=== PATIENT | female | born 1965 | race Caucasian/White ===

== ENCOUNTER 2019-05-16 00:47 | Outpatient (CLI) | payer MEDICAID, SELFPAY ==
--- NOTE | 2019-05-16 09:01 | DI.RAD_ITS ---
SYMPTOMS/DIAGNOSIS: RT KNEE PAIN, HX OF DISLOCATION AND CAST RIGHT KNEE: Three views. No priors. There is marked narrowing of the medial femoral tibial joint space and mild narrowing of the patellofemoral joint. There are large osteophytes arising from all three joint compartments particularly the patellofemoral joint and the medial femoral tibial joint space. No acute fracture or dislocation is seen. There is a small suprapatellar joint effusion. The soft tissues are otherwise unremarkable. IMPRESSION: Severe osteoarthritis of the right knee.
[2019-05-16 10:07] LABS: Abs Immature Grans 0.01 k/cumm (0.0-0.09); Absolute Basophil Count 0.01 k/cumm (0.0-0.2); Absolute Eosinophil Count 0.07 k/cumm (0.0-0.7); Absolute Lymphocyte Count 1.31 k/cumm (1.2-3.4); Absolute Monocyte Count 0.53 k/cumm (0.11-0.7); Basophils % 0.2; Eosinophils % 1.5; HCT 45.5 % (36.0-46.0); HGB 15.1 g/dL (12.0-15.5); Immature Grans % 0.2; Lymphocytes % 28.3; Mean Corp. HGB Concentration 33.2 g/dL (32.0-36.0); Mean Corpuscular Hemoglobin 28.7 pg (27.0-33.0); Mean Corpuscular Volume 86.5 fL (80-95); Monocytes % 11.4; Neutrophils % 58.4; Platelet Count 196 x1000/uL (130-400); RBC 5.26 m/cumm (4.00-5.20); RBC Distribution Width 13.9 % (11.7-14.6); White Blood Cell Count 4.63 k/cumm (4.4-10.8)
[2019-05-16 10:45] LABS: Hemoglobin A1C 5.6 % (4.5-6.2)
[2019-05-16 12:09] LABS: ALT 31 U/L (12-78); AST 16 U/L (15-37); Albumin 4.1 g/dL (3.4-5.0); Alkaline Phosphatase 66 U/L (46-116); Anion Gap 11.4 mmol/L (3-11); BUN 16 mg/dL (7-18); Bilirubin, Total 0.4 mg/dL (0.2-1.0); CO2 26.6 mmol/L (21.0-32.0); CREATININE 0.92 mg/dL (0.55-1.02); Calcium 9.2 mg/dL (8.5-10.1); Calculated LDL 168 mg/dL; Chloride 106 mmol/L (98-107); Cholesterol 264 mg/dL (50-200); Ferritin 57 ng/mL (8-388); Glucose 102 mg/dL (70-100); HDL Cholesterol 67 mg/dL (40-60); Potassium 4.5 mmol/L (3.5-5.1); Sodium 144 mmol/L (136-145); TSH 17.62 uIU/mL (0.358-3.74); Triglyceride 148 mg/dL (30-150)
[2019-05-16 12:30] LABS: FREE T4 0.99 ng/dL (0.76-1.46)
[2019-05-16 16:35] LABS: T3,Free 3.4 pg/ml (2.8-5.3)
[2019-05-17 10:31] LABS: Thyroglobulin Antibody 56 U/mL (<61); Thyroperoxidase Antibody >1300 U/mL (<61)
== END 2019-05-16 01:07 ==
PROVIDERS: PCP Naturopath; Visit Provider Naturopath
DX: M25.561 Pain in right knee (principal); M25.461 Effusion, right knee; M17.11 Unilateral primary osteoarthritis, right knee; E55.9 Vitamin D deficiency, unspecified; N95.1 Menopausal and female climacteric states; E03.9 Hypothyroidism, unspecified; Z13.220 Encounter for screening for lipoid disorders; E01.8 Other iodine-deficiency related thyroid disorders and allied conditions; D50.9 Iron deficiency anemia, unspecified; E66.9 Obesity, unspecified
CPT/HCPCS: 36415; 73562; 80053; 80061; 83721; 82728; 83036; 84439; 84443; 84481; 85025; 86376; 86800

== ENCOUNTER 2019-05-22 10:32 | Outpatient (REF) | payer MEDICAID, SELFPAY ==
[2019-05-25 22:09] LABS: Iodine, 24 hr Urine 1379 mcg/24 h (75 - 851); Urine Volume 1950 mL
== END 2019-05-22 10:52 ==
LOC: LBN 10:32
PROVIDERS: PCP Naturopath; Visit Provider Naturopath
DX: E55.9 Vitamin D deficiency, unspecified (principal); E03.9 Hypothyroidism, unspecified; N95.1 Menopausal and female climacteric states; E01.8 Other iodine-deficiency related thyroid disorders and allied conditions; D50.9 Iron deficiency anemia, unspecified; E66.9 Obesity, unspecified; Z13.220 Encounter for screening for lipoid disorders; Z00.00 Encounter for general adult medical examination without abnormal findings
CPT/HCPCS: 81050; 83018

== ENCOUNTER 2019-10-10 09:37 | Outpatient (CLI) | payer MEDICAID, SELFPAY ==
[2019-10-10 11:20] LABS: TSH 0.93 uIU/mL (0.36-3.74)
== END 2019-10-10 09:57 ==
PROVIDERS: PCP Naturopath; Visit Provider Naturopath
DX: E07.9 Disorder of thyroid, unspecified (principal); E06.3 Autoimmune thyroiditis
CPT/HCPCS: 36415; 84439; 84443

== ENCOUNTER 2020-06-11 02:51 | Outpatient (CLI) | payer MEDICAID, SELFPAY ==
[2020-06-11 13:05] LABS: Abs Immature Grans 0.03 10^3/uL (0.0-0.06); Absolute Basophil Count 0.02 10^3/uL (0.0-0.2); Absolute Eosinophil Count 0.03 10^3/uL (0.0-0.7); Absolute Lymphocyte Count 1.28 10^3/uL (1.2-3.4); Absolute Monocyte Count 0.57 10^3/uL (0.1-0.8); Absolute Neutrophil Count 2.83 10^3/uL (1.2-6.7); Basophils % 0.4; Eosinophils % 0.6; HCT 47.6 % (36.0-46.0); HGB 15.2 g/dL (11.2-15.7); Immature Grans % 0.6; Lymphocytes % 26.9; MCH 27.5 pg (27.0-33.0); MCHC 31.9 % (32.0-36.0); MCV 86.2 fL (80-95); MPV 10.9 fL (8.0-11.0); Neutrophils % 59.5; Nucleated RBC 0 %; Platelet Count 221 10^3/uL (130-400); RBC 5.52 10^6/uL (3.93-5.22); RDW 13.3 % (11.7-14.6); RDW-SD 42.4 fL; WBC 4.76 10^3/uL (4.4-10.8)
[2020-06-11 13:34] LABS: Bilirubin Negative (Negative); Blood Negative (Negative); Clarity Clear (Clear); Glucose Negative (Negative); Ketones Negative (Negative); Leukocyte Esterase Negative (Negative); Nitrite Negative (Negative); Urobilinogen 0.2 EU/dL (Up TO 0.2); pH 6.5 (5-8)
[2020-06-11 13:43] LABS: Hemoglobin A1C 5.6 % (3.8-5.6)
[2020-06-11 14:34] LABS: FREE T4 1.28 ng/dL (0.76-1.46); TSH 0.16 uIU/mL (0.36-3.74)
[2020-06-11 21:14] LABS: T3,Free 3.9 pg/mL (2.8-5.3)
[2020-06-11 22:09] LABS: Thyroperoxidase Antibody >1300 U/mL (<=60)
[2020-06-14 09:12] LABS: 25-Hydroxy D Total 42 ng/mL; 25-Hydroxy D2 12 ng/mL; 25-Hydroxy D3 30 ng/mL
== END 2020-06-11 03:11 ==
PROVIDERS: PCP Naturopath; Visit Provider Naturopath
DX: E06.3 Autoimmune thyroiditis (principal); E66.3 Overweight; D50.9 Iron deficiency anemia, unspecified; R53.83 Other fatigue; E55.9 Vitamin D deficiency, unspecified; E66.9 Obesity, unspecified
CPT/HCPCS: 36415; 82306; 81003; 83036; 84439; 84443; 84481; 85025; 86376

== ENCOUNTER 2020-09-20 01:01 | Outpatient (CLI) | payer MEDICAID, SELFPAY ==
--- NOTE | 2020-09-20 | DI.MAMMO_ITS ---
EXAM: MAMMO SCREENING CLINICAL HISTORY: SCREENING,Z12.31. TECHNIQUE: Bilateral full field digital CC and MLO mammographic images were obtained with 3D tomosyn thesis and utilizing computer aided detection (CAD). COMPARISON: None available FINDINGS: In the medial aspect of the left breast on 3D cc imaging there are 2 small well-defined noncalcified nodules which are located medial of center lower inner quadrant, approximately eight centimetres in f rom the nipple. There are no malignant-appearing microcalcification groups in this region nor elsewh ere in the breast. No significant focal findings in the opposite-right breast. There is no new architectural distortio n nor skin thickening-retraction. IMPRESSION: No radiographic evidence of malignancy in the right breast Two small noncalcified nodules located medially in the left breast, as described above. Breast ultra sound recommended BI-RADS Category 0 - Assessment Incomplete: Need additional imaging evaluation Breast Density - Category B - Scattered areas of fibroglandular density Breast density Category C or D implies that the patient has dense breast tissue. Dense breast tissue can make it harder to find cancer on a mammogram. Dense breast tissue is also associated with an incr eased risk of breast cancer. This information about the result of the mammogram report was provided to the patient to raise their awareness. Use this report when you speak with the patient about their risks for breast cancer, which includes their family history. At that time, you may recommend additional screening tests (Ultrasoun d or MRI) as these tests may add significant information. A negative radiographic report should not delay biopsy if a dominant or clinically suspicious mass is present. Up to ten percent of cancers are not identified on mammography. A negative report may reinforce clinical impression. Adenosis and dense breasts may obscure an underlying neoplasm. False positive reports average 6 to 10%. Patient will receive a letter notifying them of these results.
== END 2020-09-20 01:21 ==
PROVIDERS: PCP Naturopath; Visit Provider Naturopath
DX: Z12.31 Encounter for screening mammogram for malignant neoplasm of breast (principal); N63.24 Unspecified lump in the left breast, lower inner quadrant
CPT/HCPCS: 77063; 77067

== ENCOUNTER 2020-10-12 01:38 | Outpatient (CLI) | payer MEDICAID, SELFPAY ==
--- NOTE | 2020-10-12 | DI.US_ITS ---
EXAM: US BREAST LT LIMITED CLINICAL HISTORY: F/U MAMMO, 2 SMALL NODULES LOWER INNER QUADRANT TECHNIQUE: Ultrasound right breast performed using standard protocol. COMPARISON: MG MG MAMMO SCREENING from 09/20/2020 FINDINGS: Ultrasound was performed the medial left breast for small areas of nodularity. Minimally dilated stephanie ts are seen in the subareolar region. No solid or cystic masses, hypoechoic foci, areas of abnormal shadowing, or areas of skin thickening. Findings on mammogram are consistent with normal intra mammar y lymph nodes. IMPRESSION: No sonographically suspicious finding. Yearly screening mammography is recommended. BI-RADS Category 2 - Benign Findings DATA REPOSITORY:
== END 2020-10-12 01:58 ==
PROVIDERS: PCP Naturopath; Visit Provider Naturopath
DX: R92.8 Other abnormal and inconclusive findings on diagnostic imaging of breast (principal)
CPT/HCPCS: 76642

== ENCOUNTER 2021-01-25 02:39 | Outpatient (CLI) | payer MEDICAID, SELFPAY ==
[2021-01-25 09:31] LABS: Abs Immature Grans 0.01 10^3/uL (0.0-0.06); Absolute Basophil Count 0.02 10^3/uL (0.0-0.2); Absolute Eosinophil Count 0.07 10^3/uL (0.0-0.7); Absolute Lymphocyte Count 1.25 10^3/uL (1.2-3.4); Absolute Monocyte Count 0.44 10^3/uL (0.1-0.8); Absolute Neutrophil Count 1.85 10^3/uL (1.2-6.7); Basophils % 0.5; Eosinophils % 1.9; HGB 15.4 g/dL (11.2-15.7); Immature Grans % 0.3; Lymphocytes % 34.3; MCH 27.7 pg (27.0-33.0); MCHC 32.1 % (32.0-36.0); MCV 86.5 fL (80-95); MPV 10.4 fL (8.0-11.0); Monocytes % 12.1; Neutrophils % 50.9; Nucleated RBC 0 %; Platelet Count 193 10^3/uL (130-400); RBC 5.55 10^6/uL (3.93-5.22); RDW 13.7 % (11.7-14.6); RDW-SD 43.7 fL; WBC 3.64 10^3/uL (4.4-10.8)
[2021-01-25 09:44] LABS: Hemoglobin A1C 5.7 % (<5.7)
[2021-01-25 10:35] LABS: ALT 50 U/L (14-59); AST 37 U/L (15-37); Albumin 4.1 g/dL (3.4-5.0); Alkaline Phosphatase 72 U/L (46-116); Anion Gap 7.1 mmol/L (3-11); BUN 21 mg/dL (7-18); Bilirubin, Total 0.5 mg/dL (0.2-1.0); CO2 27.9 mmol/L (21.0-32.0); CREATININE 0.9 mg/dL (0.55-1.02); Chloride 105 mmol/L (98-107); Ferritin 97 ng/mL (8-252); Glucose 102 mg/dL (74-106); Potassium 3.9 mmol/L (3.5-5.1); Sodium 140 mmol/L (136-145); TSH 4.85 uIU/mL (0.36-3.74); Total Protein 7.5 g/dL (6.4-8.2)
[2021-01-25 10:51] LABS: FREE T4 0.67 ng/dL (0.76-1.46)
[2021-01-25 17:01] LABS: T3,Free 3.5 pg/mL (2.8-5.3)
[2021-01-25 17:37] LABS: Thyroperoxidase Antibody >1300 U/mL (<=60)
[2021-01-29 12:15] LABS: 25-Hydroxy D Total 40 ng/mL; 25-Hydroxy D2 7.3 ng/mL; 25-Hydroxy D3 33 ng/mL
== END 2021-01-25 02:40 | disposition home or self-care (01) ==
LOC: LBO 02:39
PROVIDERS: PCP Naturopath; Visit Provider Naturopath
DX: D50.9 Iron deficiency anemia, unspecified (principal); R53.83 Other fatigue; E06.3 Autoimmune thyroiditis; E66.3 Overweight; E55.9 Vitamin D deficiency, unspecified; Z13.1 Encounter for screening for diabetes mellitus
CPT/HCPCS: 36415; 80053; 82306; 82728; 83036; 84439; 84443; 84481; 85025; 86376

== ENCOUNTER 2021-06-06 04:14 | Outpatient (CLI) | payer MEDICAID, SELFPAY ==
[2021-06-06 08:25] LABS: Abs Immature Grans 0.01 10^3/uL (0.0-0.06); Absolute Basophil Count 0.01 10^3/uL (0.0-0.2); Absolute Eosinophil Count 0.03 10^3/uL (0.0-0.7); Absolute Lymphocyte Count 1.32 10^3/uL (1.2-3.4); Absolute Monocyte Count 0.53 10^3/uL (0.1-0.8); Absolute Neutrophil Count 2.39 10^3/uL (1.2-6.7); Basophils % 0.2; Eosinophils % 0.7; HCT 45.9 % (36.0-46.0); HGB 14.9 g/dL (11.2-15.7); Immature Grans % 0.2; Lymphocytes % 30.8; MCH 27.6 pg (27.0-33.0); MCHC 32.5 % (32.0-36.0); MPV 10.8 fL (8.0-11.0); Monocytes % 12.4; Neutrophils % 55.7; Nucleated RBC 0 %; Platelet Count 181 10^3/uL (130-400); RDW 13.5 % (11.7-14.6); RDW-SD 41.8 fL; WBC 4.29 10^3/uL (4.4-10.8)
[2021-06-06 09:26] LABS: FREE T4 0.69 ng/dL (0.76-1.46); TSH 11.75 uIU/mL (0.36-3.74)
[2021-06-06 17:07] LABS: T3,Free 2.8 pg/mL (2.8-5.3)
[2021-06-06 18:36] LABS: Thyroperoxidase Antibody >1300 U/mL (<=60)
[2021-06-11 17:12] LABS: 25-Hydroxy D Total 36 ng/mL; 25-Hydroxy D2 10 ng/mL; 25-Hydroxy D3 26 ng/mL
== END 2021-06-06 04:15 | disposition home or self-care (01) ==
LOC: LBO 04:15
PROVIDERS: PCP Naturopath; Visit Provider Naturopath
DX: E06.3 Autoimmune thyroiditis (principal); M25.761 Osteophyte, right knee; R73.03 Prediabetes; M54.5 Low back pain; M17.11 Unilateral primary osteoarthritis, right knee; E66.9 Obesity, unspecified; E55.9 Vitamin D deficiency, unspecified; D50.9 Iron deficiency anemia, unspecified
CPT/HCPCS: 36415; 82306; 84439; 84443; 84481; 85025; 86376

== ENCOUNTER 2021-10-02 02:31 | Outpatient (CLI) | payer MEDICAID, SELFPAY ==
[2021-10-02 08:48] LABS: Abs Immature Grans 0.01 10^3/uL (0.0-0.06); Absolute Basophil Count 0.02 10^3/uL (0.0-0.2); Absolute Eosinophil Count 0.04 10^3/uL (0.0-0.7); Absolute Lymphocyte Count 0.93 10^3/uL (1.2-3.4); Absolute Monocyte Count 0.42 10^3/uL (0.1-0.8); Absolute Neutrophil Count 2.46 10^3/uL (1.2-6.7); Basophils % 0.5; HCT 45.5 % (36.0-46.0); Immature Grans % 0.3; MCH 28.2 pg (27.0-33.0); MCV 85.7 fL (80-95); MPV 10.7 fL (8.0-11.0); Monocytes % 10.8; Neutrophils % 63.4; Nucleated RBC 0 %; Platelet Count 187 10^3/uL (130-400); RBC 5.31 10^6/uL (3.93-5.22); RDW 13.3 % (11.7-14.6); WBC 3.88 10^3/uL (4.4-10.8)
[2021-10-02 10:01] LABS: FREE T4 0.75 ng/dL (0.76-1.46); TSH 13.59 uIU/mL (0.36-3.74)
[2021-10-02 17:41] LABS: T3,Free 3.5 pg/mL (2.8-5.3)
[2021-10-02 21:07] LABS: Thyroperoxidase Antibody >1300 U/mL (<=60)
[2021-10-04 16:52] LABS: 25-Hydroxy D Total 43 ng/mL; 25-Hydroxy D2 6.9 ng/mL; 25-Hydroxy D3 36 ng/mL
== END 2021-10-02 02:32 | disposition home or self-care (01) ==
LOC: LBO 02:31
PROVIDERS: PCP Naturopath; Visit Provider Naturopath
DX: E06.3 Autoimmune thyroiditis (principal); J30.9 Allergic rhinitis, unspecified; E55.9 Vitamin D deficiency, unspecified; E66.9 Obesity, unspecified; R73.03 Prediabetes; M17.11 Unilateral primary osteoarthritis, right knee; G47.33 Obstructive sleep apnea (adult) (pediatric)
CPT/HCPCS: 36415; 82306; 84439; 84443; 84481; 85025; 86376

== ENCOUNTER 2022-02-26 04:32 | Outpatient (CLI) | payer MEDICAID, SELFPAY ==
[2022-02-26 09:26] LABS: Abs Immature Grans 0.01 10^3/uL (0.0-0.06); Absolute Basophil Count 0.01 10^3/uL (0.0-0.2); Absolute Eosinophil Count 0.03 10^3/uL (0.0-0.7); Absolute Lymphocyte Count 1.18 10^3/uL (1.2-3.4); Absolute Neutrophil Count 2.17 10^3/uL (1.2-6.7); Basophils % 0.3; Eosinophils % 0.8; HCT 45.4 % (36.0-46.0); HGB 14.4 g/dL (11.2-15.7); Immature Grans % 0.3; Lymphocytes % 31.1; MCH 28.5 pg (27.0-33.0); MCHC 31.7 % (32.0-36.0); MCV 89.9 fL (80-95); MPV 10.4 fL (8.0-11.0); Monocytes % 10.5; Platelet Count 172 10^3/uL (130-400); RBC 5.05 10^6/uL (3.93-5.22); RDW 12.9 % (11.7-14.6); RDW-SD 43.1 fL
[2022-02-26 10:27] LABS: FREE T4 0.74 ng/dL (0.76-1.46)
[2022-02-26 18:16] LABS: T3,Free 3.3 pg/mL (2.8-5.3)
[2022-02-26 20:10] LABS: Thyroperoxidase Antibody >1300 U/mL (<=60)
[2022-03-01 14:47] LABS: 25-Hydroxy D Total 44 ng/mL; 25-Hydroxy D2 9.6 ng/mL; 25-Hydroxy D3 34 ng/mL
== END 2022-02-26 04:33 | disposition home or self-care (01) ==
LOC: LBO 04:32
PROVIDERS: PCP Naturopath; Visit Provider Naturopath
DX: E06.3 Autoimmune thyroiditis (principal); R73.03 Prediabetes; E55.9 Vitamin D deficiency, unspecified; D50.9 Iron deficiency anemia, unspecified; E66.9 Obesity, unspecified
CPT/HCPCS: 36415; 82306; 84439; 84443; 84481; 85025; 86376

== ENCOUNTER 2022-07-22 01:29 | Outpatient (CLI) | payer MEDICAID, SELFPAY ==
[2022-07-22 13:00] LABS: Bilirubin Negative (Negative); Blood Negative (Negative); Clarity Clear (Clear); Glucose Negative (Negative); Ketones Negative (Negative); Leukocyte Esterase Negative (Negative); Nitrite Negative (Negative); Specific Gravity 1.015 (1.005-1.025); Urobilinogen 0.2 EU/dL (Up TO 0.2)
[2022-07-22 18:02] LABS: ALT 31 U/L (14-59); AST 22 U/L (15-37); Albumin 4.3 g/dL (3.4-5.0); Alkaline Phosphatase 59 U/L (46-116); Anion Gap 13.2 mmol/L (3-11); BUN 16 mg/dL (7-18); Bilirubin, Total 0.4 mg/dL (0.2-1.0); CO2 24.8 mmol/L (21.0-32.0); CREATININE 0.8 mg/dL (0.55-1.02); Calcium 9.1 mg/dL (8.5-10.1); Calculated LDL 190 mg/dL (<100); Chloride 103 mmol/L (98-107); Cholesterol 289 mg/dL (<200); Estimated GFR 86.42 (mL/min/1.73m2); Ferritin 126 ng/mL (8-252); Glucose 97 mg/dL (74-106); HDL Cholesterol 75 mg/dL (40-60); Potassium 4.4 mmol/L (3.5-5.1); Sodium 141 mmol/L (136-145); TSH 4.68 uIU/mL (0.36-3.74); Total Protein 7.5 g/dL (6.4-8.2); Triglyceride 123 mg/dL (<150)
[2022-07-22 18:24] LABS: FREE T4 0.74 ng/dL (0.76-1.46)
[2022-07-22 23:15] LABS: Thyroglobulin Antibody 29 U/mL (<=60); Thyroperoxidase Antibody >1300 U/mL (<=60)
== END 2022-07-22 01:30 | disposition home or self-care (01) ==
LOC: LBO 01:29
PROVIDERS: PCP Naturopath; Visit Provider Naturopath
DX: E06.3 Autoimmune thyroiditis (principal); E55.9 Vitamin D deficiency, unspecified; R53.83 Other fatigue; R35.0 Frequency of micturition; G47.33 Obstructive sleep apnea (adult) (pediatric); Z13.220 Encounter for screening for lipoid disorders; R73.03 Prediabetes
CPT/HCPCS: 36415; 80053; 80061; 86376; 81003; 82728; 84439; 84443; 84481

== ENCOUNTER 2022-12-30 16:16 | Outpatient (REF) | payer MEDICAID, SELFPAY ==
--- NOTE | 2022-12-30 15:10 | PAPFT_PTH ---
PATIENT: Yanni Toth LOC: [facility] U#:[id number] AGE/SX: 57/F ROOM: RE12/30/[address]: Odalis Coker MD : [id number] BED: DIS: 12/30/2022 SPEC #: [id number] RECD: 12/30/22 18:09 STATUS: ERICK RETono #: [id number] FEDE: 12/30/22 15:[address]: Odalis Coker DEPT: [facility] Cytology RECD BY: Donna Mayers ENTERED: 12/30/22 18:09 SP TYPE: PAPFT OTHR DR: Fabi Bedolla Tissues: 1 - CX/ENDOCX FOR PAP SMEARS Procedures: PAP THIN PREP/[facility] Screening HPV DNA PROBE Comments: [id number]
== END 2022-12-30 16:17 | disposition home or self-care (01) ==
LOC: LBN 16:16
PROVIDERS: PCP Naturopath; Visit Provider Obstetrics & Gynecology
DX: Z12.4 Encounter for screening for malignant neoplasm of cervix (principal); Z11.51 Encounter for screening for human papillomavirus (HPV)
CPT/HCPCS: 88142; 87624

== ENCOUNTER 2023-01-08 01:36 | Outpatient (CLI) | payer MEDICAID, SELFPAY ==
--- NOTE | 2023-01-08 | DI.MAMMO_ITS ---
Exam(s) MAMMO SCREENING EXAM: MAMMO SCREENING CLINICAL HISTORY: SCREENING, Z12.31 TECHNIQUE: Mammograms were interpreted according to the usual protocol including computer analysis w [employer] CAD system, tomosynthesis and C-view imaging. COMPARISON: 2020 FINDINGS: The breasts are composed of scattered fibroglandular densities, Breast Density category B. No suspicious masses or suspicious microcalcifications are seen. No skin thickening or abnormal axillary lymph nodes are seen. There has been no significant change from prior exams. IMPRESSION: BI-RADS Category 1, Negative mammogram Yearly screening mammography is recommended. Breast Density - Category B, scattered fibroglandular densities. A negative radiographic report should not delay biopsy if a dominant or clinically suspicious mass is present. Up to ten percent of cancers are not identified on mammography. A negative report may reinforce clinical impression. Adenosis and dense breasts may obscure an underlying neoplasm. False positive reports average 6 to 10%. Patient will receive a letter notifying them of these results.
--- NOTE | 2023-01-08 | DI.DEXA_ITS ---
Exam(s) XR DEXA BONE DENSITY W/WO VANDANA EXAM: XR DEXA BONE DENSITY W/WO VANDANA CLINICAL HISTORY: SCREENING FOR OSTEOPOROSIS, Z13.820 TECHNIQUE: [employer] C densitometer analysis of left hip, lumbar spine and right forearm. COMPARISON: No exams were available for comparison FINDINGS: Lateral view of the thoracic and lumbar spine shows no evidence of compression fractures. Bone mineral density measurements of the lumbar spine correspond to a total T-score of 0.4, in the n ormal range Bone mineral density measurements of the left hip correspond to a total T-score of -0.1. The femora l neck T-score is -1.0, the lower limit of normal.. The right forearm bone mineral density measurements correspond to a T-score of the distal 3rd of 0.1 , in the normal range.. IMPRESSION: Normal bone mineral density.
== END 2023-01-08 01:56 ==
LOC: DI 01:36
PROVIDERS: PCP Naturopath; Visit Provider Naturopath
DX: Z12.31 Encounter for screening mammogram for malignant neoplasm of breast (principal); Z13.820 Encounter for screening for osteoporosis; R92.8 Other abnormal and inconclusive findings on diagnostic imaging of breast
CPT/HCPCS: 77063; 77067; 77080

== ENCOUNTER 2023-02-27 01:39 | Outpatient (CLI) | payer MEDICAID, SELFPAY ==
[2023-02-27 10:34] LABS: Bilirubin Negative (Negative); Blood Negative (Negative); Clarity Clear (Clear); Glucose Negative (Negative); Ketones Negative (Negative); Leukocyte Esterase Negative (Negative); Nitrite Negative (Negative); Specific Gravity >= 1.030 (1.005-1.025); Urobilinogen 0.2 mg/dL (Up to 0.2)
[2023-02-27 10:57] LABS: ALT 27 U/L (14-59); AST 19 U/L (15-37); Alkaline Phosphatase 72 U/L (46-116); Anion Gap 9.6 mmol/L (3-11); BUN 20 mg/dL (7-18); Bilirubin, Total 0.5 mg/dL (0.2-1.0); CO2 25.4 mmol/L (21.0-32.0); CREATININE 0.9 mg/dL (0.55-1.02); Calcium 9.1 mg/dL (8.5-10.1); Chloride 105 mmol/L (98-107); Estimated GFR 74.57 (mL/min/1.73m2); FREE T4 0.74 ng/dL (0.76-1.46); Glucose 98 mg/dL (74-106); Potassium 3.6 mmol/L (3.5-5.1); Sodium 140 mmol/L (136-145); TSH 2.05 uIU/mL (0.36-3.74); Total Protein 7.6 g/dL (6.4-8.2)
[2023-02-27 21:02] LABS: T3,Free 3.5 pg/mL (2.8-5.3)
[2023-02-27 21:48] LABS: Thyroperoxidase Antibody 1198 U/mL (<=60)
== END 2023-02-27 01:40 | disposition home or self-care (01) ==
LOC: LBO 01:39
PROVIDERS: PCP Naturopath; Visit Provider Naturopath
DX: E06.3 Autoimmune thyroiditis (principal); E66.9 Obesity, unspecified; G47.33 Obstructive sleep apnea (adult) (pediatric); E78.00 Pure hypercholesterolemia, unspecified; M17.11 Unilateral primary osteoarthritis, right knee; R73.03 Prediabetes; M72.2 Plantar fascial fibromatosis; F32.1 Major depressive disorder, single episode, moderate; R35.0 Frequency of micturition; R53.83 Other fatigue; J30.81 Allergic rhinitis due to animal (cat) (dog) hair and dander
CPT/HCPCS: 36415; 80053; 81003; 84439; 84443; 84481; 86376

== ENCOUNTER 2023-07-27 02:00 | Outpatient (CLI) | payer MEDICAID, SELFPAY ==
[2023-07-27 08:46] LABS: Abs Immature Grans 0.01 10^3/uL (0.0-0.06); Absolute Basophil Count 0.02 10^3/uL (0.0-0.2); Absolute Eosinophil Count 0.02 10^3/uL (0.0-0.7); Absolute Lymphocyte Count 1.36 10^3/uL (1.2-3.4); Absolute Monocyte Count 0.48 10^3/uL (0.1-0.8); Absolute Neutrophil Count 2.64 10^3/uL (1.2-6.7); Basophils % 0.4; Eosinophils % 0.4; HCT 48.6 % (36.0-46.0); HGB 15.9 g/dL (11.2-15.7); Immature Grans % 0.2; MCH 28.1 pg (27.0-33.0); MCHC 32.7 % (32.0-36.0); MCV 86 fL (80-95); MPV 10.5 fL (8.0-11.0); Monocytes % 10.6; Neutrophils % 58.4; Platelet Count 192 10^3/uL (130-400); RBC 5.66 10^6/uL (3.93-5.22); RDW 13.1 % (11.7-14.6); RDW-SD 41.1 fL; WBC 4.53 10^3/uL (4.4-10.8)
[2023-07-27 08:50] LABS: Bilirubin Negative (Negative); Blood Negative (Negative); Clarity Clear (Clear); Glucose Negative (Negative); Ketones Negative (Negative); Leukocyte Esterase Negative (Negative); Nitrite Negative (Negative); Specific Gravity 1.025 (1.005-1.025); Urobilinogen 0.2 mg/dL (Up to 0.2)
[2023-07-27 09:12] LABS: Hemoglobin A1C 5.5 % (<5.7)
[2023-07-27 10:00] LABS: FREE T4 0.74 ng/dL (0.76-1.46)
[2023-07-27 17:48] LABS: T3,Free 3.2 pg/mL (2.8-5.3)
[2023-07-27 18:27] LABS: Thyroglobulin Antibody 18 U/mL (<=60); Thyroperoxidase Antibody >1300 U/mL (<=60)
[2023-07-30 09:01] LABS: Insulin 7.2 uIU/mL (<29.0)
== END 2023-07-27 02:01 | disposition home or self-care (01) ==
LOC: LBO 02:00
PROVIDERS: PCP Naturopath; Visit Provider Naturopath
DX: E06.3 Autoimmune thyroiditis (principal); R73.03 Prediabetes; E66.9 Obesity, unspecified; R42 Dizziness and giddiness; R35.0 Frequency of micturition
CPT/HCPCS: 36415; 81003; 83036; 83525; 84439; 84443; 84481; 85025; 86376; 86800

== ENCOUNTER 2024-01-28 05:12 | Outpatient (CLI) | payer MEDICAID, SELFPAY ==
[2024-01-28 12:58] LABS: Hemoglobin A1C 5.5 % (<5.7)
[2024-01-28 13:19] LABS: ALT 22 U/L (14-59); AST 17 U/L (15-37); Albumin 4.1 g/dL (3.4-5.0); Alkaline Phosphatase 69 U/L (46-116); Anion Gap 13.6 mmol/L (3-11); BUN 16 mg/dL (7-18); Bilirubin, Total 0.7 mg/dL (0.2-1.0); CO2 25.4 mmol/L (21.0-32.0); CREATININE 0.8 mg/dL (0.55-1.02); Calcium 9.2 mg/dL (8.5-10.1); Calculated LDL 154 mg/dL (<100); Chloride 105 mmol/L (98-107); Cholesterol 253 mg/dL (<200); Estimated GFR 85.35 (mL/min/1.73m2); Ferritin 108 ng/mL (8-252); Glucose 99 mg/dL (74-106); HDL Cholesterol 80 mg/dL (40-60); Potassium 4.1 mmol/L (3.5-5.1); Sodium 144 mmol/L (136-145); TSH 1.62 uIU/Ml (0.36-3.74); Total Protein 7.6 g/dL (6.4-8.2); Triglyceride 96 mg/dL (<150)
[2024-01-28 14:04] LABS: FREE T4 0.83 ng/dL (0.76-1.46)
[2024-01-28 14:21] LABS: Bilirubin Negative (Negative); Blood Negative (Negative); Clarity Clear (Clear); Glucose Negative (Negative); Ketones Trace mg/dL (Negative); Leukocyte Esterase Negative (Negative); Nitrite Negative (Negative); Urobilinogen 0.2 mg/dL (Up to 0.2)
[2024-01-28 22:38] LABS: Thyroglobulin Antibody 33 U/mL (<=60); Thyroperoxidase Antibody >1300 U/mL (<=60)
[2024-01-29 09:41] LABS: Insulin 9.6 uIU/mL (<29.0)
== END 2024-01-28 05:13 | disposition home or self-care (01) ==
LOC: LBO 05:12
PROVIDERS: PCP Naturopath; Visit Provider Naturopath
DX: E06.3 Autoimmune thyroiditis (principal); R73.03 Prediabetes; E66.9 Obesity, unspecified; R42 Dizziness and giddiness; R35.0 Frequency of micturition; R53.83 Other fatigue; D50.9 Iron deficiency anemia, unspecified; M54.59 Other low back pain; E78.00 Pure hypercholesterolemia, unspecified
CPT/HCPCS: 36415; 80053; 80061; 81003; 82728; 83036; 83525; 84439; 84443; 84481; 86376; 86800

== ENCOUNTER 2024-09-27 02:10 | Outpatient (CLI) | payer MEDICAID, SELFPAY ==
[2024-09-27 09:48] LABS: Abs Immature Grans 0.01 10^3/uL (0.0-0.06); Absolute Basophil Count 0.03 10^3/uL (0.0-0.2); Absolute Eosinophil Count 0.02 10^3/uL (0.0-0.7); Absolute Lymphocyte Count 1.13 10^3/uL (1.2-3.4); Absolute Monocyte Count 0.45 10^3/uL (0.1-0.8); Absolute Neutrophil Count 2.32 10^3/uL (1.2-6.7); Basophils % 0.8 %; Eosinophils % 0.5 %; HCT 49.2 % (36.0-46.0); HGB 15.9 g/dL (11.2-15.7); Immature Grans % 0.3 %; Lymphocytes % 28.5 %; MCH 28.4 pg (27.0-33.0); MCHC 32.3 % (32.0-36.0); MCV 88 fL (80-95); MPV 10.8 fL (8.0-11.0); Monocytes % 11.4 %; Neutrophils % 58.5 %; Platelet Count 222 10^3/uL (130-400); RBC 5.59 10^6/uL (3.93-5.22); RDW 13.2 % (11.7-14.6); RDW-SD 42.7 fL; WBC 3.96 10^3/uL (4.4-10.8)
[2024-09-27 09:57] LABS: Hemoglobin A1C 5.5 % (<5.7)
[2024-09-27 10:22] LABS: ALT 20 U/L (14-59); AST 17 U/L (15-37); Albumin 4.1 g/dL (3.4-5.0); Alkaline Phosphatase 71 U/L (46-116); Anion Gap 6.8 mmol/L (3-11); BUN 19 mg/dL (7-18); Bilirubin Negative (Negative); Bilirubin, Total 0.53 mg/dL (0.2-1.0); Blood Negative (Negative); CO2 27.2 mmol/L (21.0-32.0); CREATININE 0.9 mg/dL (0.55-1.02); Calcium 9.5 mg/dL (8.5-10.1); Calculated LDL 158 mg/dL (<100); Chloride 103 mmol/L (98-107); Cholesterol 263 mg/dL (<200); Clarity Clear (Clear); Glucose 111 mg/dL (74-106); Glucose Negative (Negative); HDL Cholesterol 73 mg/dL (40-60); Ketones Negative (Negative); Leukocyte Esterase Small (Negative); Nitrite Negative (Negative); Sodium 137 mmol/L (136-145); TSH 6.64 uIU/mL (0.36-3.74); Total Protein 7.6 g/dL (6.4-8.2); Triglyceride 161 mg/dL (<150); Urobilinogen 0.2 mg/dL (Up to 0.2); pH 6.5 (5-8)
[2024-09-27 10:30] LABS: Bacteria Few HPF (Negative); C & S Indicated? Yes; Casts Negative LPF (Negative); Crystals Negative HPF (Negative); Epithelial Cells Few HPF (Negative); Mucus Trace (Negative); RBC 0-2 HPF (0-2)
[2024-09-27 17:48] LABS: T3,Free 2.9 pg/mL (2.8-5.3)
[2024-09-27 18:23] LABS: Thyroglobulin Antibody 34 U/mL (<=60); Thyroperoxidase Antibody >1300 U/mL (<=60)
[2024-09-30 14:55] LABS: Thyroglobulin Antibody 6.4 IU/mL (<1.8); Thyroglobulin Tumor Marker <0.1 ng/mL
== END 2024-09-27 02:11 | disposition home or self-care (01) ==
LOC: LBO 02:10
PROVIDERS: PCP Naturopath; Visit Provider Naturopath
DX: E06.3 Autoimmune thyroiditis (principal); R73.03 Prediabetes; E66.9 Obesity, unspecified; R42 Dizziness and giddiness; R35.0 Frequency of micturition; R53.83 Other fatigue; D50.9 Iron deficiency anemia, unspecified; M25.512 Pain in left shoulder; M54.59 Other low back pain; E78.00 Pure hypercholesterolemia, unspecified; M17.11 Unilateral primary osteoarthritis, right knee; M25.761 Osteophyte, right knee
CPT/HCPCS: 36415; 80053; 80061; 86376; 81003; 81015; 83036; 83525; 84432; 84443; 84481; 85025; 86800; 87086

== ENCOUNTER 2025-09-08 02:56 | Outpatient (CLI) | payer MEDICAID, SELFPAY ==
[2025-09-08 10:25] LABS: Abs Immature Grans 0.01 10^3/uL (0.0-0.06); HCT 44.5 % (36.0-46.0); HGB 14.6 g/dL (11.2-15.7); Immature Grans % 0.3 %; MCH 28.7 pg (27.0-33.0); MCHC 32.8 % (32.0-36.0); MCV 88 fL (80-95); MPV 10.4 fL (8.0-11.0); Platelet Count 183 10^3/uL (130-400); RBC 5.08 10^6/uL (3.93-5.22); RDW 13.2 % (11.7-14.6); RDW-SD 42.8 fL; WBC 3.69 10^3/uL (4.4-10.8)
[2025-09-08 11:12] LABS: ALT 37 U/L (14-59); AST 24 U/L (15-37); Albumin 3.9 g/dL (3.4-5.0); Alkaline Phosphatase 60 U/L (46-116); Anion Gap 9.6 mmol/L (3-11); BUN 17 mg/dL (7-18); Bilirubin, Total 0.5 mg/dL (0.2-1.0); CO2 27.4 mmol/L (21.0-32.0); Calcium 8.9 mg/dL (8.5-10.1); Chloride 103 mmol/L (98-107); Cholesterol 257 mg/dL (<200); Glucose 101 mg/dL (74-106); HDL Cholesterol 87 mg/dL (>or=50); Potassium 4.0 mmol/L (3.5-5.1); Sodium 140 mmol/L (136-145); TSH 3.59 uIU/mL (0.36-3.74); Total Protein 7.4 g/dL (6.4-8.2)
[2025-09-08 17:22] LABS: T3,Free 3.5 pg/mL (2.8-5.3)
== END 2025-09-08 02:57 | disposition home or self-care (01) ==
LOC: LBO 02:56
PROVIDERS: PCP Naturopath; Visit Provider Naturopath
DX: E06.3 Autoimmune thyroiditis (principal); E66.3 Overweight; R73.03 Prediabetes; E78.00 Pure hypercholesterolemia, unspecified; R42 Dizziness and giddiness; R53.83 Other fatigue; D50.9 Iron deficiency anemia, unspecified
CPT/HCPCS: 36415; 80053; 80061; 86376; 84439; 84443; 84481; 85025